=== PATIENT | female | born 1970 | race Caucasian/White ===

== ENCOUNTER → 2016-10-28 | Outpatient (CLI) | payer OTHER ==
[~2016-10-28] MED LIST: ACHYD1T PO; DCS100C PO; ESTR1TAB24 PO; IBP800T PO; LORA10CA PO; OMEP20CA12 PO
--- OUTSIDE RECORDS SUMMARY | 2016-10-28 07:23 | XMS REPORT | Continuity of Care Document ---
Author Author [facility] Organization [facility] Address Unknown Phone Unavailable Allergies Active Description Code Type Severity Reaction Onset Reported/Identified Relationship to Patient Clinical Status Yes NKANo Known Allergies NKA Miscellaneous Allergy Unknown N/ A 07/03/2006 Medications Problems Date Dx Coded Attending Type Code Diagnosis Diagnosed By 02/21/2012 Ot 617.0 UTERINE ENDOMETRIOSIS 02/21/2012 Ot 617.1 OVARIAN ENDOMETRIOSIS 02/21/2012 Ot 617.3 PELV PERIT ENDOMETRIOSIS 02/21/2012 Ot 618.4 UTERVAGINAL PROLAPSE NOS 02/21/2012 Ot 620.0 FOLLICULAR CYST OF OVARY 02/21/2012 Ot 620.1 CORPUS LUTEUM CYST 02/21/2012 Ot 625.6 FEM STRESS INCONTINENCE 02/21/2012 Ot 626.2 EXCESSIVE MENSTRUATION 11/25/2014 Ot V76.12 11/25/2014 Ot V76.12 11/25/2014 Ot V76.12 11/25/2014 Ot 621.2 11/25/2014 Ot 625.6 11/25/2014 Ot 626.2 11/25/2014 Ot V72.63 11/25/2014 Ot V74.8 11/25/2014 MONALISA BENNETT, GERONIMO Webber Ot V76.12 11/25/2014 MONALISA BENNETT, GERONIMO Webber Ot V76.12 07/27/2015 Ot V76.12 07/27/2015 Ot V76.12 07/27/2015 Ot 621.2 07/27/2015 Ot 625.6 07/27/2015 Ot 626.2 07/27/2015 Ot V72.63 07/27/2015 Ot V74.8 07/27/2015 GERONIMO SHELDON MD Ot V76.12 07/27/2015 GERONIMO SHELDON MD Ot V76.12 08/13/2015 MONALISA BENNETT, GERONIMO Webber Ot Z12.31 10/28/2016 Ot V76.12 OTH SCREEN MAMMO-MALIGN NEOPLASM OF KINJAL 10/28/2016 Ot 621.2 HYPERTROPHY OF UTERUS 10/28/2016 Ot 625.6 FEM STRESS INCONTINENCE 10/28/2016 Ot 626.2 EXCESSIVE MENSTRUATION 10/28/2016 Ot V72.63 PRE-PROCEDURAL LABORATORY EXAMINATION 10/28/2016 Ot V74.8 SCREEN-BACTERIAL DIS NEC 10/28/2016 GERONIMO SHELDON MD Ot V76.12 OTH SCREEN MAMMO-MALIGN NEOPLASM OF KINJAL 10/28/2016 GERONIMO SHELDON MD Ot V76.12 OTH SCREEN MAMMO-MALIGN NEOPLASM OF KINJAL 10/28/2016 GERONIMO SHELDON MD Ot Z12.31 ENCNTR SCREEN MAMMOGRAM FOR MALIGNANT NE Procedures Results Encounters ACCT No. Visit Date/Time Discharge Status Pt. Type Provider Facility Loc./Unit Complaint [id number] 04/30/2014 09:50:00 2013 23:59:59 CLS Outpatient GERONIMO SHELDON MD [facility] RAD SCREENING [id number] 03/13/2013 07:02:00 2012 23:59:59 CLS Outpatient GERONIMO SHELDON MD [facility] RAD SCREENING [id number] 10/28/2016 07:19:00 ACT Outpatient GERONIMO SHELDON MD [facility] RAD SCREENING [id number] 07/27/2015 11:02:00 ACT Outpatient GERONIMO SHELDON MD [facility] RAD SCREENING [id number] 11/25/2014 15:26:00 Document Registration [id number] 02/16/2012 08:44:00 Document Registration [id number] 10/06/2011 08:32:00 Document Registration [id number] 09/02/2010 08:58:00 Document Registration [id number] 07/01/2009 14:28:00 Document Registration
--- NOTE | 2016-10-28 19:17 | Diagnostic Imaging Report ---
INDICATION: Digital mammogram bilateral screening. This study was compared to the prior exam of 07/27/15 and 04/30/14. At this time, there are no current complaints. The current study was also evaluated with a Computer Aided Detection (CAD) system. FINDINGS: There are scattered fibroglandular densities in both breasts which could obscure a lesion. Overall, there does not appear to have been any significant change when compared to the prior exam. No primary or secondary sign of malignancy is noted. IMPRESSION: There is no radiographic evidence for malignancy. ACR BI-RADS Category 1: Negative. Result letter will be mailed to the patient. Note: At least 10% of breast cancer is not imaged by mammography. Dictated by: Dictated on workstation # [id number]
== END ==
LOC: RAD 07:19
PROVIDERS: ATTEND Obstetrics & Gynecology
DX: Z12.31 Encounter for screening mammogram for malignant neoplasm of breast (principal)
CPT/HCPCS: 77067

== ENCOUNTER → 2017-11-16 | Outpatient (CLI) | payer OTHER ==
--- NOTE | 2017-11-16 16:01 | Diagnostic Imaging Report ---
INDICATION: Routine screening. COMPARISON: 10/28/2016 and 07/27/2015. TECHNIQUE: Screening digital mammography was performed bilaterally with a Computer Aided Detection (CAD) system. FINDINGS: Both breasts appear primarily involutional. No discrete mass or malignant appearing microcalcifications are seen. The axillae are unremarkable. IMPRESSION: No mammographic features suspicious for malignancy are identified. ACR BI-RADS Category 1: Negative. Result letter will be mailed to the patient. Note: At least 10% of breast cancer is not imaged by mammography. Dictated by: Dictated on workstation # [id number]
== END ==
LOC: RAD 14:40
PROVIDERS: ATTEND Obstetrics & Gynecology
DX: Z12.31 Encounter for screening mammogram for malignant neoplasm of breast (principal)
CPT/HCPCS: 77067

== ENCOUNTER → 2018-12-03 | Outpatient (CLI) | payer OTHER ==
--- NOTE | 2018-12-03 10:47 | Diagnostic Imaging Report ---
Indication: Routine screening. Comparison is made with prior mammogram from 11/16/2017 and 10/28/2016. 2-D and 3-D bilateral screening mammography was performed with CAD. Scattered fibronodular densities are identified bilaterally. Benign calcifications in the right breast are stable. No mass or malignant-appearing microcalcifications are seen. The axilla are unremarkable. Impression: BI-RADS category 2 No mammographic features suspicious for malignancy are identified. ACR BI-RADS Category 2: Benign findings. Result letter will be mailed to the patient. Note: At least 10% of breast cancer is not imaged by mammography. Dictated by: Dictated on workstation # [id number]
== END ==
LOC: RAD 07:13
PROVIDERS: ATTEND Obstetrics & Gynecology
DX: Z12.31 Encounter for screening mammogram for malignant neoplasm of breast (principal)
CPT/HCPCS: 77067

== ENCOUNTER → 2020-06-19 | Outpatient (CLI) | payer OTHER ==
--- NOTE | 2020-06-19 14:36 | Diagnostic Imaging Report ---
INDICATION: Palpable right neck lump. TECHNIQUE: Grayscale sonographic images of the thyroid gland. CORRELATION STUDY: None FINDINGS: RIGHT LOBE: 4.9 x 1.6 x 1.7 cm. Several small nodules within the right lobe are present. Largest approximate 9 x 5 x 9 mm, cystic in its appearance. Minimal blood flow. No definitive echogenic calcific foci. LEFT LOBE: 4.9 x 1.2 x 1.4 cm. Several small nodules left lobe are also present. Small nodule is noted posteriorly measuring 9 x 5 x 5 mm. Isthmus appears unremarkable. IMPRESSION: Bilateral thyroid nodules. All measuring less than 1 cm maximum size. Findings of no significant multinodular goiter. Followup ultrasound imaging in 6-12 months recommended. (Normal gland size: 4-5 x 2 x 2 cm) Dictated by: Dictated on workstation # [id number]
== END ==
LOC: RAD 12:10
PROVIDERS: ATTEND Surgery
DX: E04.2 Nontoxic multinodular goiter (principal)
CPT/HCPCS: 76536

== ENCOUNTER → 2021-04-16 | Outpatient (CLI) | payer OTHER ==
--- NOTE | 2021-04-16 14:33 | Diagnostic Imaging Report ---
INDICATION: Routine screening. Comparison is made with prior mammogram 12/03/2018 and 11/16/2017. 2-D and 3-D bilateral screening mammography was performed with CAD. Scattered fibroglandular densities are identified bilaterally. Scattered benign calcifications are noted bilaterally. No mass or malignant appearing microcalcifications are seen. Axillae are unremarkable. IMPRESSION: BI-RADS Category 2. No mammographic features suspicious for malignancy are identified. ACR BI-RADS Category 2: Benign findings. Result letter will be mailed to the patient. Note: At least 10% of breast cancer is not imaged by mammography. Dictated by: Dictated on workstation # [id number]
--- NOTE | 2021-04-16 15:52 | Diagnostic Imaging Report ---
PROCEDURE: US thyroid. TECHNIQUE: Multiple real-time grayscale images were obtained of the thyroid in various projections. INDICATION: Follow up nodules. COMPARISON: 06/19/2020. FINDINGS: Both thyroid lobes demonstrate smooth and homogenous background echotexture. Color flow Doppler demonstrates normal and symmetric vascularity, bilaterally. The right lobe measures 4.9 cm in length, 1.4 cm AP and 1.6 cm transverse. The left lobe measures 4.5 cm in length, 1.2 cm AP and 1.3 cm transverse. The isthmus measures 0.3 cm. Stable mixed hypoechoic and isoechoic nodule in the inferior pole of the right lobe of the thyroid measuring 0.9 x 0.5 x 0.9 cm. Similar appearing nodule is also unchanged in the inferior pole of the left lobe of the thyroid measuring 0.8 x 0.5 x 0.5 cm. No new focal nodules are seen in the thyroid. IMPRESSION: Stable subcentimeter nodules in the bilateral lower poles of the thyroid. No new thyroid nodule is seen. Recommend continued surveillance with TSH levels and thyroid ultrasound in 1-2 years. Dictated by: Dictated on workstation # [id number]
== END ==
LOC: RAD 11:14
PROVIDERS: ATTEND Internal Medicine
DX: Z12.31 Encounter for screening mammogram for malignant neoplasm of breast (principal); E04.2 Nontoxic multinodular goiter
CPT/HCPCS: 76536; 77063; 77067

== ENCOUNTER → 2022-04-18 | Outpatient (CLI) | payer OTHER ==
--- NOTE | 2022-04-18 19:48 | Diagnostic Imaging Report ---
PROCEDURE: US Thyroid. TECHNIQUE: Multiple real-time grayscale images were obtained of the thyroid in various projections. INDICATION: Thyroid nodule surveillance. COMPARISON: 04/16/2021. FINDINGS: Right Thyroid Lobe: The right thyroid lobe measures 4.9 x 1.3 x 1.4 cm. Multiple nodules within the right thyroid lobe have not changed. In the upper pole, there is an 8 x 5 x 7 mm spongiform nodule with circumscribed margins and no echogenic foci (TI-RADS 2). A few benign cysts are present within the right thyroid lobe that are stable (TI-RADS 1). Isthmus: The thyroid isthmus measures 0.3 cm and is without nodules. Left Thyroid Lobe: The left thyroid lobe measures 4.5 x 1.5 x 1.4 cm. Stable mixed solid and cystic circumscribed nodule with no echogenic foci that is wider than tall in the lower pole of the left thyroid measuring up to 6 mm (TI-RADS 2). No new nodule. IMPRESSION: Bilateral nonsuspicious thyroid nodules are stable and do not meet criteria for advised follow-up imaging based on TI-RADS. ACR TI-RADS: TR2. TI-RADS Recommendations:TR2 - Not Suspicious. No FNA. Dictated by: Dictated on workstation # [id number]
--- NOTE | 2022-04-19 09:05 | Diagnostic Imaging Report ---
INDICATION: Routine screening. Comparison is made with prior mammogram from 04/16/2021 and 12/03/2018. 2-D and 3-D bilateral screening mammography was performed with CAD. CAD is utilized. The current study was also evaluated with a Computer Aided Detection (CAD) system. Scattered fibroglandular densities are identified bilaterally. The parenchymal pattern is stable. Benign calcifications again noted bilaterally. No mass or malignant-appearing microcalcifications are seen. Axillae are unremarkable. IMPRESSION: BI-RADS Category 2 No mammographic features suspicious for malignancy are identified. ACR BI-RADS Category 2: Benign findings. Result letter will be mailed to the patient. Note: At least 10% of breast cancer is not imaged by mammography. Dictated by: Dictated on workstation # [id number]
== END ==
LOC: RAD 14:22
PROVIDERS: ATTEND Internal Medicine
DX: Z12.31 Encounter for screening mammogram for malignant neoplasm of breast (principal); E04.2 Nontoxic multinodular goiter
CPT/HCPCS: 76536; 77063; 77067

== ENCOUNTER 2022-05-04 05:38 | Outpatient (CLI) | payer OTHER ==
[~2022-05-04] VITALS: Ht 160 cm; Wt 87.5 kg
[2022-05-04] MEDS ORDERED: OMEP20TA33 PO (08:52)
== END 2022-05-04 09:24 | disposition home or self-care (01) ==
LOC: PREOP 05:38
PROVIDERS: ATTEND Internal Medicine
DX: Z01.818 Encounter for other preprocedural examination (principal)

== ENCOUNTER 2022-05-13 07:29 | Day surgery (SDC) | payer OTHER ==
--- NOTE | 2022-05-04 08:35 | HISTORY AND PHYSICAL ---
DATE OF SERVICE: COLONOSCOPY HISTORY AND PHYSICAL HISTORY OF PRESENT ILLNESS: The patient is a 51-year-old white female seen for yearly wellness evaluation. She had not previously accomplished colonoscopy. She is deemed to be of average risk as she is not aware of any family history for colon cancer or colon polyps. She reports that she has been feeling well and was due for screening mammogram. She did proceed with COVID vaccination with Moderna, last injection was about 6 months ago as I recall. 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 She has been portion controlling and her weight was down 5 pounds compared to last year. SOCIAL HISTORY: She has no past smoking or drinking history. FAMILY HISTORY: Updated. The patient reports no change in family history. No history for malignancy. Father living at the age of 86, had aortic valve replacement, history of diabetes. Mother living at the age of 82. History of hypertension, atrial fibrillation. Has one brother with atrial fibrillation in his 50s. Two sisters alive and well, upper 40s to mid 50s. PHYSICAL EXAMINATION: GENERAL: Reveals a white female, appears to be in no acute distress. VITAL SIGNS: Weight 193.2 pounds, blood pressure 134/74. HEENT: Unremarkable. Sclerae nonicteric. NECK: Revealed no thyroid abnormalities. She does have a history of thyroid nodules noted on sonogram one year ago. CHEST: Clear to auscultation. CARDIOVASCULAR: Reveals a regular rate and rhythm without murmur, S3 or S4. ABDOMEN: Soft, supple without mass, organomegaly or tenderness. EXTREMITIES: Reveal no cyanosis, clubbing or edema. ASSESSMENT AND PLAN: Stable wellness evaluation. The patient was set up for screening mammogram, surveillance thyroid sonography for followup of nodules and was set up for screening colonoscopy after discussing rationale and answering questions. Prep instructions with Plenvu were given and questions were answered. We will see her back in one year. Job ID: [id number] DocumentID: [id number] Dictated Date: 04/07/2022 16:17:37 Bricklayer Date: 04/07/2022 16:44:26 Dictated By: CHEIKH HAAS MD
[~2022-05-13] VITALS: Ht 160 cm; Wt 87.5 kg
[~2022-05-13 07:29] MED LIST changes: +OMEP20TA33 PO
[2022-05-13] MEDS ORDERED: LACTATED RINGERS 1,000 ML IV STA (07:31)
--- NOTE | 2022-05-13 07:47 | Pre-Op Note & Conscious Sedat ---
Pre-Operative Progress Note Date H&P Reviewed: May 13, 2022 Time H&P Reviewed: 07:47 History & Physical: H&P Reviewed, Patient Examed, No changes noted Pre-Op Diagnosis: screening Conscious Sedation Pre-Proced ASA Score 2 For ASA 3 and 4: Consider anesthesia and medical clearance. Also, for patients with a history of failed moderate sedation consider anesthesia. Airway Lungs Heart ASA score ASA 1: a normal healthy patient ASA 2: a patient with a mild systemic disease (mid diabetes, controlled hypertension, obesity ASA 3: a patient with a severe systemic disease that limits activity (angina, COPD, prior Myocardial infarction) ASA 4: a patient with an incapacitating disease that is a constant threat to life (CHF, renal failure) ASA 5: a moribund patient not expected to survive 24 hrs. (ruptured aneurysm) ASA 6: a declared brain- patient whose organs are being harvested. For emergent operations, add the letter E after the classification Mallampati Classification Grade 2 Sedation Plan Analgesia, Amnesia, Plan communicated to team members, Discussed options with patient/fam, Discussed risks with patient/fam The patient is an appropriate candidate to undergo the planned procedure, sedation, and anesthesia. The patient immediately re-assessed prior to indication. CHEIKH HAAS MD May 13, 2022 07:47
[2022-05-13 07:51] VITALS: BP 133/87
[2022-05-13] MEDS ORDERED: ONDANSETRON 4 MG/2 ML (SDV) Z0FRAN IV ONE (08:15)
[2022-05-13] MEDS ORDERED: PROPOFOL INJECTION 50 ML IV ONE ×2 (08:26→08:40)
--- NOTE | 2022-05-13 08:57 | Progress Note-Post Operative ---
Post-Procedure Note Physician (s)/Desk Operator (s) Physician CHEIKH HAAS MD Pre-Procedure Diagnosis Pre-Procedure Diagnosis: screening Post-Procedure Diagnosis Post-operative diagnosis: 4mm sessile polyp cauterized rectosigmoid junction. CHEIKH HAAS MD May 13, 2022 08:57
[2022-05-13 09:01] VITALS: BP 138/73
[2022-05-13 09:05] VITALS: BP 138/69
[2022-05-13 09:33] VITALS: BP 136/76
--- NOTE | 2022-05-13 12:39 | Anesthesia-General Post-Op ---
MAC Patient Condition Mental Status/LOC: Same as Preop Cardiovascular: Satisfactory Nausea/Vomiting: Absent Respiratory: Satisfactory Pain: Controlled Complications: Absent Post Op Complications Complications None Follow Up Care/Instructions Patient Instructions None needed. Anesthesiology Discharge Order Discharge Order Patient is doing well, no complaints, stable vital signs, no apparent adverse anesthesia problems. No complications reported per nursing. TARA ADEN CRNA May 13, 2022 12:39
--- NOTE | 2022-05-13 15:12 | OPERATIVE REPORT ---
DATE OF SERVICE: COLONOSCOPY SUMMARY PRIMARY CARE PHYSICIAN: Cheikh Haas MD. INDICATION FOR THE PROCEDURE: Screening colonoscopy. DESCRIPTION OF PROCEDURE: The patient was placed in the left lateral decubitus position. The colonoscope was inserted in the rectum and under direct visualization advanced to the cecum. The cecum was identified by identification of the ileocecal valve and a cecal strap. Photographic documentation was obtained. A careful inspection was made as the colonoscope withdrawn. Quality of the prep was good. FINDINGS: Digital rectal evaluation prior to colonoscopy was unremarkable. There was no evidence for internal or external hemorrhoids. Present at the rectosigmoid junction was a 4 mm sessile adenomatous appearing polyp. It was photographed and biopsied and ablated with no subsequent blood loss. The sigmoid colon, descending colon, splenic flexure, transverse colon, hepatic flexure, ascending colon, and cecum were unremarkable with no evidence for diverticular disease was noted. ASSESSMENT: One 4 mm sessile adenomatous appearing polyp was removed via hot forceps from the rectosigmoid junction with otherwise normal colonoscopy to the cecum. As long as there are no surprises on histopathology report, we will be advocating repeat screening colonoscopy in 10 years. Job ID: [id number] DocumentID: [id number] Dictated Date: 05/13/2022 08:59:13 Bureau Chief Date: 05/13/2022 15:12:04 Dictated By: CHEIKH HAAS MD
== END 2022-05-13 09:45 | disposition home or self-care (01) ==
LOC: ENDO 07:29
PROVIDERS: ATTEND Internal Medicine
DX: Z12.11 Encounter for screening for malignant neoplasm of colon (principal); D12.5 Benign neoplasm of sigmoid colon; Z28.311 Partially vaccinated for COVID-19

== ENCOUNTER → 2023-05-17 | Outpatient (CLI) | payer OTHER | LOC: RAD 08:02 | PROVIDERS: ATTEND Internal Medicine | DX: Z53.9 Procedure and treatment not carried out, unspecified reason (principal) ==